=== PATIENT | female | born 1980 | race African-American/Black ===

== ENCOUNTER 2020-03-01 08:38 | Emergency (ER) | payer OTHER, SELFPAY ==
[2020-03-01 08:46] VITALS: BP 137/77; PULSE 75; RESP 18; TEMP 37.6; O2SAT 98; BMI 38.6
--- NOTE | 2020-03-01 08:52 | DI.RAD.S_ITS ---
PROCEDURE: XR ANKLE RT MIN 3V INDICATIONS: R internal ankle pain rolled TECHNIQUE: 3 views of the ankle were acquired. COMPARISON: None. FINDINGS: Bones: There is a nondisplaced fracture involving tip of lateral malleolus. No other fracture or dislocation.. Ankle mortise is normally aligned. No suspicious bony lesions. Soft tissues: Lateral ankle soft tissue swelling is seen. No tibiotalar joint effusion. Achilles tendon appears normal. IMPRESSION: Nondisplaced fracture involving tip of lateral malleolus with overlying soft tissue swelling. Intact ankle mortise. Dictated by: Arnold Beckham M.D. on 03/01/2020 at 9:07 Approved by: Arnold Beckham M.D. on 03/01/2020 at 9:12
--- NOTE | 2020-03-01 08:54 | ED.LOWEXIN ---
HPI - Extremity Injury (Lower) General Chief Complaint: Extremity Injury, Lower Stated Complaint: fell off ladder/hurt right ankle Time Seen by Provider: 03/01/20 08:54 Source: patient Mode of arrival: Wheelchair Limitations: no limitations History of Present Illness HPI Narrative: The patient was in her garage yesterday, working up on a ladder. She felt the latter tipping, she was backing down. About 2 feet off the floor, she jumped from the ladder. She suffered an inversion injury to the right ankle. She has tenderness and swelling to the medial and lateral ankle. She has no associated knee pain, or calf pain. She has no mid or distal foot pain. She has no numbness or weakness in the right foot. She also landed on extent the left hand. There is a mild bruise to the left palm, no pain or limited motion. There were no other injuries. She has no chronic medical problems, she is on no prescription medications. She denies . Related Data Allergies Allergy/AdvReac Type Severity Reaction Status Date / Time No Known Drug Allergies Allergy Verified 03/01/20 08:46 Review of Systems Constitutional Comments: No recent illness ENT Ears, Nose, Mouth, and Throat: Denies dizziness Musculoskeletal Comments: Right foot and left hand injuries as noted HPI. Integumentary/Breasts Comments: Contusion to the left palm is noted HPI. Neurologic Neurologic: Denies confusion and Denies dizziness Comments: No focal numbness or weakness. Psychiatric Psychiatric: Denies confusion Patient History Medical History No chronic problems Surgical History No significant past surgical history Social History Smoking Status: Never smoker Smoking Status: Never smoker alcohol intake frequency: 0-2 drinks per day Substance Use Type: does not use Exam Initial Vital Signs Initial Vital Signs: Vital Signs Temperature 99.6 F 03/01/20 08:46 Pulse Rate 75 03/01/20 08:46 Respiratory Rate 18 03/01/20 08:46 Blood Pressure 137/77 03/01/20 08:46 Pulse Oximetry 98 03/01/20 08:46 Const General: cooperative and well developed Nutritional Appearance: well nourished [facility] Head: normal to inspection and normocephalic Skin General: no rashes or lesions noted Neuro General: patient alert, patient oriented x3, gait normal and no focal motor deficits Speech: speech normal Extrem General: full ROM, no clubbing, cyanosis or edema, no pedal edema and no calf tenderness Other: No left wrist pain. Contusion to the left hand thenar eminence. Full range of motion in the thumb and digits without discomfort. There is no obvious deformity. Exam of the right leg reveals no tenderness and normal range of motion at the knee. Old right calf is nontender. The right ankle shows medial and lateral edema, no contusion. There is no deformity. There is no laxity to the right ankle. The right foot is nontender. There is normal range of motion of the right foot. The right dorsalis pedis pulses normal. Procedures Orthopedic Splinting/Casting Injury #1: Side: right Lower Extremity Injury Location: ankle Lower Extremity Immobilizer: stirrup splint Post splinting neuro exam: intact Post splinting vascular exam: intact Placed by: Nursing Course Orders Ordered: ED Orders 03/01/20 08:52 XR ankle RT min 3V Stat Vital Signs Vital signs: Vital Signs - 8 hr 03/01/20 10:02 Pulse Rate 18 L Respiratory Rate 18 Blood Pressure 130/74 Pulse Oximetry 99 MDM - Extremity Injury (Lower) Imaging Data Right ankle x-ray: Radiologist's Impression: [address] [id number] ReportSigned Patient: Tiffany Robles EMR#: [id number]: [id number]:[id number]/Sex: 40 / FDate of Service: 03/01/20Loc: EDAccession Number: [id number] Procedure: XR ankle RT min 3V Ordering Provider: Doyle Herrera MD PROCEDURE: XR ANKLE RT MIN 3V INDICATIONS: R internal ankle pain rolled TECHNIQUE: 3 views of the ankle were acquired. COMPARISON: None. FINDINGS: Bones: There is a nondisplaced fracture involving tip of lateral malleolus. No other fracture or dislocation.. Ankle mortise is normally aligned. No suspicious bony lesions. Soft tissues: Lateral ankle soft tissue swelling is seen. No tibiotalar joint effusion. Achilles tendon appears normal. IMPRESSION: Nondisplaced fracture involving tip of lateral malleolus with overlying soft tissue swelling. Intact ankle mortise. Dictated by: Arnold Beckham M.D. on 03/01/2020 at 9:07 Approved by: Arnold Beckham M.D. on 03/01/2020 at 9:12 [facility] Narrative Medical decision making narrative: Of the patient's complaint and on exam she has right medial ankle tenderness. The x-ray interpretation is suggestive of lateral malleolus fracture. The patient has no significant tenderness at that site. I personally reviewed the x-ray, this likely represents an over read. She has an ortho boot which would be appropriate for care. She is also fitted with a Velcro splint to the right ankle. Motrin will be utilized for pain management. She asked for nothing stronger. She referred to her PCM to recheck in about 10 days. Discharge Plan Departure Patient Disposition: Home Clinical Impression: Fracture of right ankle, lateral malleolus Qualifiers: Encounter type: initial encounter Fracture type: closed Fracture alignment: nondisplaced Qualified Code(s): S82.64XA - Nondisplaced fracture of lateral malleolus of right fibula, initial encounter for closed fracture Instructions: Ankle Fracture Activity Restrictions/Additional Instructions: Use either the splint that I gave you, or the ortho boot. Use whichever gives you the most comfort. Apply ice to the right ankle frequently for the next 2 days. Ibuprofen 600 mg every 6 hours as needed for pain. The x-ray showing a fracture to the lateral ankle may be an over-read. You should keep the ankle you the splint with the boot when up and active until recheck with her doctor. Recheck with her doctor in approximately 10 days. Return to the ER if necessary.
[2020-03-01 10:02] VITALS: BP 130/74; PULSE 18; RESP 18; O2SAT 99
== END 2020-03-01 10:02 | disposition home or self-care (01) ==
PROVIDERS: Emergency Provider Emergency Medicine
DX: S82.64XA Nondisplaced fracture of lateral malleolus of right fibula, initial encounter for closed fracture (principal); W11.XXXA Fall on and from ladder, initial encounter
CPT/HCPCS: 73610; 99283